=== PATIENT | male | born 1995 | race Caucasian/White ===

== ENCOUNTER 2023-01-05 00:26 | Emergency (ER) | payer OTHER ==
[~2023-01-05] VITALS: Ht 188 cm; Wt 92.6 kg
[2023-01-05 07:50] VITALS: BP 132/84
== END 2023-01-05 07:52 | disposition home or self-care (01) ==
LOC: M ED 00:26
DX: S70.02XA Contusion of left hip, initial encounter (principal); V48.5XXA Car driver injured in noncollision transport accident in traffic accident, initial encounter